=== PATIENT | female | born 1990 | race Caucasian/White ===

== ENCOUNTER 2018-01-12 15:05 | Emergency (ER) | payer MEDICAID ==
[2015-12-23 16:40] VITALS: BMI 39.3
[~2018-01-12 15:05] MED LIST: HYDROCODON-ACE1 EAC6 PO; IBUPROFEN600 MG PO; TUMS500 MG PO
== END 2018-01-12 15:43 | disposition home or self-care (01) ==
LOC: D.ER 15:05
DX: K08.89 Other specified disorders of teeth and supporting structures (principal); K08.109 Complete loss of teeth, unspecified cause, unspecified class

== ENCOUNTER → 2018-05-28 11:45 | Outpatient (CLI) | payer MEDICAID ==
[2015-12-23 16:40] VITALS: BMI 39.3
[~2018-05-28 11:45] MED LIST changes: +ACTIGALL 300 M300 MG PO; +BENADRYL25 MG PO; +FLAGYL500 MG PO; +IBUPROFEN800 MG; +KEFLEX500 MG PO; +NORCO 7.5/325 T1 TA1 PO; +PERCOCET 5-3251 TAB; +XANAX1 MG PO
[2018-05-28 13:15] LABS: APPEARANCE CLEAR (CLEAR); BILIRUBIN NEGATIVE (NEGATIVE); COLOR DY (YELLOW); GLUCOSE NEGATIVE (NEGATIVE); KETONE NEGATIVE (NEGATIVE); NITRITE NEGATIVE (NEGATIVE); PROTEIN TRACE mg/dL (NEGATIVE); UROBILINOGEN NORMAL (NORMAL)
[2018-05-28 13:17] LABS: BACTERIA MANY /hpf (NONE SEEN); MUCUS <1+ /lpf (NONE SEEN); RED CELLS - URINE 0-5 /hpf (0-5)
[2018-05-28 13:18] LABS: AMORPHOUS SEDIMENT <1+ /lpf (NONE SEEN)
[2018-05-28 13:25] LABS: BILIRUBIN - TOTAL 0.28 mg/dL (0.2-1.3)
[2018-06-02 20:08] LABS: CHOLIC ACID 6.5 umol/L (()); DEOXYCHOLIC ACID 1.6 umol/L (()); TOTAL BILE ACIDS 11 umol/L (()); URSODEOXYCHOLIC ACID <0.10 umol/L (())
== END | disposition home or self-care (01) ==
LOC: D.LDO 11:45
PROVIDERS: Obstetrics & Gynecology
DX: O26.893 Other specified pregnancy related conditions, third trimester (principal); Z3A.35 35 weeks gestation of pregnancy; L29.9 Pruritus, unspecified; R10.30 Lower abdominal pain, unspecified

== ENCOUNTER 2018-05-29 22:51 | Outpatient (CLI) | payer MEDICAID ==
[2015-12-23 16:40] VITALS: BMI 39.3
[~2018-05-29 22:51] MED LIST changes: -IBUPROFEN800 MG; -NORCO 7.5/325 T1 TA1 PO; -PERCOCET 5-3251 TAB; -XANAX1 MG PO
[2018-05-30 13:24] LABS: HEMATOCRIT 33.1 % (36.0-48.0); HEMOGLOBIN 11.5 g/dL (12-16); MCH 31.4 pg (26.0-34.0); MCHC 34.7 g/dL (31.0-37.0); MCV 90.4 fL (80.0-100.0); MEAN PLATELET VOLUME 10.6 fL (7.4-10.4); RBC 3.66 10x6/uL (4.00-5.40); RDW 12.1 % (11.5-14.5); WBC 15.8 10x3/uL (4.8-10.8)
[2018-05-31 07:26] LABS: RAPID PLASMA REAGIN Non Reactive (Non Reactive)
== END 2018-05-31 00:57 | disposition home or self-care (01) ==
LOC: D.LDO 22:51 → D.LD 22:52 → D.LDO 05-31 00:57
PROVIDERS: Obstetrics & Gynecology
DX: O26.893 Other specified pregnancy related conditions, third trimester (principal); Z3A.33 33 weeks gestation of pregnancy

== ENCOUNTER 2018-05-31 11:46 | Inpatient (IN) | payer MEDICAID ==
[~2018-05-31] VITALS: Ht 165.1 cm; Wt 109.1 kg
[2018-05-31] VITALS (10 sets, daily range): BP systolic 105–146; BP diastolic 58–88; Ht 165.1 cm; Wt 109.1 kg
--- NOTE | ~2018-05-31 | DS ---
PATIENT:KIMBERLY CARDONA :89 MEDICAL RECORD: [id number] DISCHARGE SUMMARY ADMISSION DATE: 05/31/18 DISCHARGE DATE: 06/02/18 DATE OF ADMISSION: 05/31/2018 DATE OF DISCHARGE: 06/02/2018 ADMISSION DIAGNOSES: 1. at 34 and 6 weeks' gestation. 2. Suspect cholestasis of . 3. Nonreassuring surveillance. DISCHARGE DIAGNOSES: 1. Mother delivered at 34 weeks and 6 days. 2. Suspect cholestasis of . 3. Nonreassuring surveillance. PROCEDURE: Repeat low transverse section at 34 weeks and 6 days. SURGEON: Maricel Aguirre MD HISTORY OF PRESENT ILLNESS: See the H&P in the chart. SUMMARY OF HOSPITALIZATION: The patient was admitted, and after counseling and consent, received section for a biophysical profile of 4/10 and persistent decreased movement perceived over the preceding 48 hours. The patient has done well and at the time of discharge is tolerating regular diet, ambulating and voiding without difficulty. The patient will be discharged after 36 hours and before 48 due to infant's transfer to tertiary center. The patient's incision is clean, dry and intact and she is reporting scant lochia. Follow up in 2 weeks. DISCHARGE MEDICATIONS: Include Percocet and ibuprofen. TRANSINT:[id number] Voice Confirmation ID: [id number] DOCUMENT ID: [id number] MARICEL AGUIRRE MD at 1458 CC: [id number] DICTATION DATE: 06/02/18 1231 GASOLINE SERVICE ATTENDANT: 06/02/18 1303 DIS IN 06/02/18 [address] [place] [address]
--- NOTE | ~2018-05-31 | OP ---
PATIENT NAME: KIMBERLY CARDONA MEDICAL RECORD: [id number] :92 LOCATION:[address] ADMISSION DATE:05/31/18 SURGEON: HERSON AGUIRRE MD DATE OF OPERATION: 05/31/2018 PREOPERATIVE DIAGNOSES: 1. at 34 weeks and 6 days. 2. Suspect cholestasis of . 3. Nonreassuring surveillance. POSTOPERATIVE DIAGNOSES: 1. at 34 weeks and 6 days. 2. Suspect cholestasis of . 3. Nonreassuring surveillance. PROCEDURE: Repeat low transverse section. SURGEON: Herson Aguirre MD. ANESTHESIA: Spinal. FINDINGS: Viable male infant, vertex presentation, Apgars were 7 and 8, weight 5 pounds 7 ounces. SPECIMEN REMOVED: Placenta. SPECIMEN DISPOSITION: Pathology. ESTIMATED BLOOD LOSS: 800 cc. FLUIDS: 1700 cc of normal saline. URINE OUTPUT: 150 cc of clear urine. COMPLICATIONS: None. DRAINS: Rodríguez to gravity. INDICATIONS: The patient is a 28-year-old G3, para 2 at 34 weeks and 6 days. The patient is undergoing workup for cholestasis of . The patient has had greater than 48-hour period of time with significant decrease in movement. The patient has had reactive NSTs; however, today due to persistent decreased movement, MARY and biophysical profile was performed and the patient was found to have a 2/8 BPP with ultrasound including the NST was 4/10. Due to the decreased movement and persistent and nonreassuring testing, she has consented for section. DESCRIPTION OF PROCEDURE: After informed consent was assured, the patient was taken to the operating room where anesthetic was obtained. She is now prepped and draped and the anesthetic tested. An incision was made over the old scar, carried down to the underlying layer of the fascia, which was opened in the midline and extended laterally. Rectus bellies were dissected free superiorly and inferiorly and then they were in the midline. The rectus bellies were further stretched and a DeLee all-purpose retractor inserted. Low transverse hysterotomy was performed and the was delivered on to the OPERATIVE REPORT [id number] KIMBERLY CARDONA abdomen atraumatically. Infant was passed to the awaiting attendance. Cord has been doubly clamped and cut. The placenta was delivered via Crede maneuver. Uterus exteriorized, cleared of all clot and debris and closed in a running locked fashion. Uterus was now returned to the abdomen, inspected and found to be hemostatic. The pelvis was irrigated and irrigant was removed. Fascia was closed with looped PDS after reapproximation of the peritoneum and rectus bellies with a loose chromic stitch. The fascia was closed and then the subcutaneous tissues inspected and bleeding vessels cauterized. Subcuticular stitch was applied. Sterile dressing was placed over the incision. Sponge, lap, and needle counts correct times 2. TRANSINT:[id number] Voice Confirmation ID: [id number] DOCUMENT ID: [id number] HERSON AGUIRRE MD at 1457 CC: [id number] DICTATION DATE: 06/02/18 1235 SIEBEL ADMINISTRATOR: 06/02/18 1252 DIS IN 06/02/18 [facility] [address] [place] [address]
[2018-05-31 16:58] LABS: APPEARANCE CLEAR (CLEAR); BILIRUBIN NEGATIVE (NEGATIVE); COLOR YELLOW (YELLOW); GLUCOSE NEGATIVE (NEGATIVE); KETONE NEGATIVE (NEGATIVE); NITRITE NEGATIVE (NEGATIVE); PROTEIN NEGATIVE (NEGATIVE); UROBILINOGEN NORMAL (NORMAL); WHITE CELLS - URINE OCC /hpf (0-5)
[2018-05-31 16:59] LABS: BACTERIA FEW /hpf (NONE SEEN)
[2018-06-01 04:08] VITALS: BP 118/71
[2018-06-01 07:02] LABS: BASOPHILS 0 % (0-2); EOSINOPHILS 0.7 % (0-7); HEMATOCRIT 29.6 % (36.0-48.0); HEMOGLOBIN 10.2 g/dL (12-16); IMMATURE GRANULOCYTES 0.9 % (0-5); MCH 31.4 pg (26.0-34.0); MCHC 34.5 g/dL (31.0-37.0); MCV 91.1 fL (80.0-100.0); MEAN PLATELET VOLUME 10.9 fL (7.4-10.4); MONOCYTES 3.7 % (2-11); NEUTROPHILS 75.7 % (40-80); PLATELET COUNT 228 10x3/uL (130-400); RBC 3.25 10x6/uL (4.00-5.40); RDW 12.4 % (11.5-14.5); WBC 12.3 10x3/uL (4.8-10.8)
[2018-06-01 07:30] VITALS: BP 124/76
[2018-06-01 08:10] LABS: UDS - AMPHET NEGATIVE QUAL (NEGATIVE); UDS - BARB NEGATIVE QUAL (NEGATIVE); UDS - BENZO NEGATIVE QUAL (NEGATIVE); UDS - COCAINE NEGATIVE QUAL (NEGATIVE); UDS - OPIATE NEGATIVE QUAL (NEGATIVE); UDS - PCP NEGATIVE QUAL (NEGATIVE); UDS - THC NEGATIVE QUAL (NEGATIVE)
[2018-06-01 12:18] VITALS: BP 123/72
[2018-06-01 19:00] VITALS: BP 141/62
[2018-06-01 22:59] VITALS: BP 126/74
[2018-06-02 08:42] VITALS: BP 132/79
[2018-06-02 11:22] VITALS: BP 125/76
[2018-06-02] MEDS ORDERED: XANAX1 MG PO (12:48)
[2018-06-02] MEDS ORDERED: IBUPROFEN800 MG (12:50)
[2018-06-02] MEDS ORDERED: PERCOCET 5-3251 TAB (12:52)
== END 2018-06-02 13:30 | disposition home or self-care (01) | DRG 765 ==
LOC: D.LDO 11:46 → D.LD 16:30 → D.WS 16:30
PROVIDERS: Obstetrics & Gynecology
PROC: 10D00Z1 Extraction of Products of Conception, Low, Open Approach (ICD-10-PCS; principal; 2018-05-31 15:56)
DX: O36.8130 Decreased fetal movements, third trimester, not applicable or unspecified (principal); K83.1 Obstruction of bile duct; O60.14X0 Preterm labor third trimester with preterm delivery third trimester, not applicable or unspecified; O26.62 Liver and biliary tract disorders in childbirth; Z3A.34 34 weeks gestation of pregnancy; Z37.0 Single live birth; O99.334 Smoking (tobacco) complicating childbirth

== ENCOUNTER 2018-06-07 18:36 | Emergency (ER) | payer MEDICAID ==
[~2018-06-07] VITALS: Ht 165.1 cm; Wt 100.0 kg
[~2018-06-07 18:36] MED LIST changes: +IBUPROFEN800 MG; +PERCOCET 5-3251 TAB; +XANAX1 MG PO
[2018-06-07 18:56] VITALS: BP 102/56; Ht 165.1 cm; Wt 100.0 kg
== END 2018-06-07 20:13 | disposition left against medical advice (07) ==
LOC: D.ER 18:36
DX: G89.18 Other acute postprocedural pain (principal)

== ENCOUNTER 2018-06-10 21:56 | Emergency (ER) | payer MEDICAID ==
[~2018-06-10] VITALS: Ht 165.1 cm; Wt 90.9 kg
[2018-06-10 22:15] VITALS: Ht 165.1 cm; Wt 90.9 kg
[2018-06-11] MEDS ORDERED: KEFLEX500 MG PO (00:13)
[2018-06-11] MEDS ORDERED: NORCO 7.5/325 T1 TA1 PO (00:13)
[2018-06-11 00:31] VITALS: BP 123/85
== END 2018-06-11 00:32 | disposition home or self-care (01) ==
LOC: D.ER 21:56
DX: O86.0 Infection of obstetric surgical wound (principal); F17.200 Nicotine dependence, unspecified, uncomplicated

== ENCOUNTER 2020-04-12 23:16 | Emergency (ER) | payer MEDICAID ==
[~2020-04-12] VITALS: Ht 165.1 cm; Wt 63.6 kg
[~2020-04-12 23:16] MED LIST changes: +NORCO 7.5/325 T1 TA1 PO
[2020-04-12 23:21] VITALS: Ht 165.1 cm; Wt 63.6 kg
[2020-04-12] MEDS ORDERED: HYDROCODON-ACE1 EAC7 PO (23:59)
[2020-04-12] MEDS ORDERED: KEFLEX500 MG PO (23:59)
[2020-04-13 06:36] VITALS: BP 118/77
== END 2020-04-13 00:30 | disposition home or self-care (01) ==
LOC: D.ER 23:16
DX: S61.012A Laceration without foreign body of left thumb without damage to nail, initial encounter (principal); W31.1XXA Contact with metalworking machines, initial encounter; Y93.9 Activity, unspecified; Y92.9 Unspecified place or not applicable

== ENCOUNTER 2021-03-27 14:04 | Emergency (ER) | payer BC ==
[~2021-03-27] VITALS: Ht 165.1 cm; Wt 85.0 kg
[~2021-03-27 14:04] MED LIST changes: +HYDROCODON-ACE1 EAC7 PO
[2021-03-27 14:08] VITALS: BP 126/75; Ht 165.1 cm; Wt 85.0 kg
[2021-03-27] MEDS ORDERED: TORADOL10 MG PO (14:27)
[2021-03-27] MEDS ORDERED: PENICILLIN V P500 MG PO (14:27)
== END 2021-03-27 14:34 | disposition home or self-care (01) ==
LOC: D.ER 14:04
DX: S02.5XXA Fracture of tooth (traumatic), initial encounter for closed fracture (principal); K04.7 Periapical abscess without sinus; X58.XXXA Exposure to other specified factors, initial encounter